=== PATIENT | female | born 1965 | race African-American/Black ===

== ENCOUNTER 2020-03-02 07:18 | Day surgery (SDC) | payer OTHER ==
[2020-03-02] MEDS: SODIUM CHLORIDE 0.9% 500 ML 500 ML IV SCH ×2 (08:30→10:38)
[2020-03-02 08:34] LABS: Basophils # (Auto) 0.1 K/mm3 (0.0-0.1); Basophils % (Auto) 1.1 % (0.0-1.8); Eosinophils # (Auto) 0.1 K/mm3 (0.0-0.4); Eosinophils % (Auto) 1.6 % (0.0-4.3); Hematocrit 36.5 % (30.3-42.9); Hemoglobin 12.4 gm/dl (10.1-14.3); Lymphocytes % (Auto) 42.7 % (13.4-35.0); Mean Corpuscular HGB Conc 34 % (30-34); Mean Corpuscular Volume 90 fl (79-97); Monocytes # (Auto) 0.3 K/mm3 (0.0-0.8); Monocytes % (Auto) 6.6 % (0.0-7.3); Platelet Count 128 K/mm3 (140-440); Red Blood Count 4.06 M/mm3 (3.65-5.03); Red Cell Distribution Width 13.1 % (13.2-15.2)
[2020-03-02 08:45] LABS: INR 0.93 (0.87-1.13)
[2020-03-02 08:46] LABS: BUN/Creatinine Ratio 22; Blood Urea Nitrogen 11 mg/dL (7-17); Calcium 9.4 mg/dL (8.4-10.2); Hemolysis Index 23; Partial Thromboplastin Time 29.2 Sec. (24.2-36.6)
[2020-03-02] MEDS ORDERED: ASPIRIN EC 325 MG TAB PO SCH (09:30)
[2020-03-02] MEDS ORDERED: HEPARIN/NS 5000 UNIT/500ML 1,000 ML IR ONE (10:16)
[2020-03-02] MEDS ORDERED: HEPARIN 10,000 UNITS/10 ML VIAL ONE (10:16)
[2020-03-02] MEDS: fentaNYL 100 MCG/2 ML INJ ONE ×2 (10:35→11:00)
[2020-03-02] MEDS: MIDAZOLAM 2 MG/2 ML INJ ONE ×2 (10:38→11:00)
[2020-03-02] MEDS: LIDOCAINE (2%) 20 MG/1 ML VIAL 20 ML MDV INFILTRATI ONE ×2 (10:38→11:03)
--- NOTE | 2020-03-02 12:12 | Discharge Summary ---
Short Stay Discharge Plan Activity: advance as tolerated Weight Bearing Status: Partial Weight Bearing Diet: low fat, low cholesterol, low salt Wound: keep clean and dry Special Instructions: no heavy lifting (3 days) Additional Instructions: TRANSFER TO [facility] FOR AVR SURGERY. Follow up with: HIEU HOOD MD [Primary Care Provider] - 7 Days GIULIANA VELÁZQUEZ MD [Staff Physician] - 7 Days
[2020-03-02] MEDS ORDERED: SODIUM CHLORIDE 0.9% 1000 ML 1,000 ML IV SCH (12:15)
--- NOTE | 2020-03-02 13:03 | Cardiac Catherization Report ---
CARDIAC CATHETERIZATION REPORT REASON FOR PROCEDURE: The patient is a 54-year-old woman who was evaluated as an outpatient for symptomatic aortic stenosis. Due to the inconclusive findings on transaortic gradient on echocardiogram, she was recommended for right and left heart catheterization, with the intent for invasive assessment of the valvular stenosis and concomitant left and right coronary angiography. Risks and benefits were discussed with the patient and she consented to proceed. PROCEDURES: 1. Right heart catheterization. 2. Left heart catheterization. 3. Selective left and right coronary angiography. 4. Left ventricular angiography. 5. Sedation time, start 11:03, end 11:31. DESCRIPTION OF PROCEDURE: The patient was prepped and draped in a sterile fashion after informed consent. Right femoral artery and vein were both entered using Seldinger technique. A 6-Divehi sheath was placed in the artery and an 8-Divehi sheath in the vein. A Kearsarge-[place] catheter was then advanced to the pulmonary artery position. Cardiac outputs were measured using the thermodilution method. Without significant difficulty, we were able to transition a right Judkin's catheter across the aortic valve into the left ventricle. Simultaneous left and right heart filling pressures were then recorded. The Kearsarge-[place] catheter was then withdrawn and right heart pressures recorded on pullback. We then performed left ventricle angiography using the right Dionne catheter. The right Dionne catheter was then withdrawn across the aortic valve and transaortic gradient was recorded. We then performed a selective left and right coronary angiography. A left and right coronary angiography was performed using a #1 left Amplatz catheter. The catheters were then withdrawn, sheath withdrawn and hemostasis achieved using manual compression of both the arterial and venous sites. The patient was returned to the postprocedure unit in stable condition. There were no complications. FINDINGS: HEMODYNAMICS: Mean right atrial pressure was 10. Right ventricular pressure was 32/12. Pulmonary artery pressure was 35/15. The mean pulmonary artery wedge pressure was 15-18. Left ventricular end-diastolic pressure was 18. AORTIC STENOSIS: The left ventricular systolic pressure was 254. The ascending aortic systolic pressure was 145 mmHg. On pullback across the aortic valve, there was a transaortic peak gradient of 111 mmHg, and a mean gradient of 87 mmHg. The cardiac output measured by thermodilution was 4.05 liters per minute. Using the Gorlin equation, the aortic valve area calculates at a critical 0.4 square cm. CORONARY ANGIOGRAPHY: The left main coronary artery was angiographically normal. The left anterior descending artery and its diagonal branches were angiographically normal. The circumflex artery and its obtuse marginal branches were angiographically normal. 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 This vessel was dominant and also appeared angiographically normal. Left ventricular systolic function was normal, ejection fraction greater than 65%. CONCLUSION: 1. Critical aortic stenosis, with a peak transaortic gradient of 111 mmHg, mean gradient of 87 mmHg, and aortic valve area of 0.4. 2. Mild pulmonary hypertension with pulmonary artery systolic pressure of 35. 3. Angiographically normal coronary arteries. 4. 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 5. Normal left ventricular systolic function, ejection fraction greater than 65%. RECOMMENDATION: The patient will be recommended for aortic valve replacement. JOB# [id number] [facility]/NTS
[2020-03-02 16:44] VITALS: BP 120/83
== END 2020-03-02 17:20 | disposition other institution (70) ==
LOC: CATHLABREC 07:18
PROVIDERS: ATTEND Internal Medicine Cardiovascular Disease
DX: I35.0 Nonrheumatic aortic (valve) stenosis (principal); R07.9 Chest pain, unspecified; I27.20 Pulmonary hypertension, unspecified; I10 Essential (primary) hypertension; Z98.890 Other specified postprocedural states; Z85.89 Personal history of malignant neoplasm of other organs and systems
CPT/HCPCS: 36415; 80048; 85025; 85610; 85730; 93005; 93010; 93460; 99156; 99157; C1769; C1894; J1644; J2250; J3010; J7030; J7040; Q9967